=== PATIENT | female | born 1960 | race Caucasian/White ===

== ENCOUNTER 2017-05-24 07:47 | Day surgery (SDC) | payer BC ==
[2017-05-24] MEDS ORDERED: PROPOFOL 10 MG/ML VIAL IV ONE (14:00)
[2017-05-24] MEDS ORDERED: LIDOCAINE 2% MDV (20MG/ML) 20ML VIAL IV ONE (14:00)
[2017-05-24] MEDS ORDERED: MIDAZOLAM HCL 2MG/2ML VIAL IV ONE (14:00)
--- NOTE | 2017-05-26 08:51 | Operative Note ---
DATE OF SURGERY: 05/24/2017 Surgeon: Cole Driscoll DO Referring physician: Dr. Rich Barboza PREOPERATIVE DIAGNOSIS: Screening colonoscopy. POSTOPERATIVE DIAGNOSIS: Screening colonoscopy. OPERATION: COLONOSCOPY TO THE CECUM PROCEDURE: The patient is a 48-year-old female who is brought to the endoscopy suite and placed in the supine position. Appropriate monitoring was placed including nasal 02, pulse oximetry, and blood pressure cuff. The patient was rotated into the left lateral position. Propofol anesthesia was titrated to effect. After anesthesia a digital rectal exam was done which revealed no internal masses. At this time, a well-lubricated PCF-180AL colonoscope was inserted in the patient's rectum and advanced to the level of the sigmoid where a moderate scattered diverticulosis was noted. This was navigated up the descending over the transverse colon to the cecum. Once the cecum was reached it was identified by the appendicial orifice and the ileocecal valve. Respective photograph was taken. The scope was then slowly withdrawn, inspecting all mucosal surface areas. There were normal folds and distensibility seen. The remaining parts of the colon are all normal with the exception of the aforementioned diverticulosis. The scope was straightened in the rectum, retroflexion was done. There were grade 1 hemorrhoids. The scope was straightened, gas evacuated. The scope was slowly removed. FINDINGS AT THE TIME OF COLONOSCOPY: Scattered left-sided diverticulosis. Recommend repeating this in 10 years or sooner if any problems arise. NELLIED
== END 2017-05-24 09:40 | disposition home or self-care (01) ==
LOC: HOP 07:47
PROVIDERS: ATTEND Surgery
DX: Z12.11 Encounter for screening for malignant neoplasm of colon (principal); K57.30 Diverticulosis of large intestine without perforation or abscess without bleeding; E78.00 Pure hypercholesterolemia, unspecified; I10 Essential (primary) hypertension
CPT/HCPCS: 00810; G0121